=== PATIENT | female | born 1960 | race Caucasian/White ===

== ENCOUNTER → 2017-12-27 | Outpatient (CLI) | payer BC ==
[~2017-12-27] MED LIST: AMBIEN 10MG10 MG PO; BUPROPION SR150 MG PO; CLEOCIN HCL300 MG PO; CLORAZEPATE; EFFEXOR-XR150 MG PO; NORCO 325 MG-51 TAB PO; PRILOSEC10 MG PO; PRINIVIL20 MG PO; PROVIGIL
== END ==
LOC: MC.RAD 11:40
DX: Z12.31 Encounter for screening mammogram for malignant neoplasm of breast (principal)

== ENCOUNTER → 2019-01-31 | Outpatient (CLI) | payer BC | LOC: MC.RAD 01-12 08:00 | DX: Z12.31 Encounter for screening mammogram for malignant neoplasm of breast (principal) ==

== ENCOUNTER → 2020-02-02 | Outpatient (CLI) | payer BC | LOC: MC.RAD 15:47 | DX: Z12.31 Encounter for screening mammogram for malignant neoplasm of breast (principal) ==

== ENCOUNTER → 2021-02-10 | Outpatient (CLI) | payer BC | LOC: MC.RAD 07:38 | DX: Z12.31 Encounter for screening mammogram for malignant neoplasm of breast (principal) ==

== ENCOUNTER → 2022-03-06 | Outpatient (CLI) | payer BC | LOC: MC.RAD 14:00 | DX: Z12.31 Encounter for screening mammogram for malignant neoplasm of breast (principal) ==